=== PATIENT | female | born 1970 | race Caucasian/White ===

== ENCOUNTER 2018-07-10 13:03 | Inpatient (IN) ==
[2018-07-10 16:02] LABS: Basophils % 0.3 % (0.0-0.8); Eosinophils # 0.1 10*3/uL (0.0-0.87); Eosinophils % 0.7 % (0.00-10.9); Hematocrit 42.9 VOL% (35.7-47.0); Hemoglobin 14.9 GM/DL (12.0-16.0); Immature Granulocytes % 0.4 %; Immature Granulocytes Absolute 0.04 #; Lymphocytes % 35.3 % (21.3-54.2); Mean Corpuscular HGB Conc 34.7 GM/DL (32-36); Mean Corpuscular Hemoglobin 34 PG (27-34); Mean Corpuscular Volume 96.4 FL (87-102); Monocytes # 0.7 10*3/uL (0.11-0.8); Monocytes % 5.9 % (1.7-12.7); Neutrophils # 6.6 10*3/uL (1.4-7.4); Neutrophils % 57.4 % (38.7-73.9); Platelet Count 322 T/CUMM (130-400); Red Blood Count 4.45 MC/CUMM (3.8-5.5); Red Cell Distribution Width 12.6 % (9.3-17.3); White Blood Count 11.4 T/CUMM (4-12)
[2018-07-10] MEDS ORDERED: ALBUTEROL 2.5 MG/3 ML NEB RESP TX STA (16:12)
[2018-07-10 16:25] LABS: Bilirubin,Total 0.4 MG/DL (0.2-1.0); Osmolality,Calculated 275.4 MOS/KG (273-304); Potassium 3.9 MMOL/L (3.5-5.1); Total Protein 7.4 G/DL (6.4-8.3)
[2018-07-10 16:57] LABS: ABG Base Excess 0.4 MMOL/L (-2.5-2.5); ABG HCO3 24.8 MMOL/L (20-26); ABG Oxygen Saturation 98.7 % (95-100); ABG PCO2 33.8 MM HG (35-48); ABG PH 7.452 (7.35-7.45)
[2018-07-10 17:46] LABS: INR 0.9; PT Patient Result 9.7 SECS
[2018-07-10] MEDS ORDERED: PROMETHAZINE 25 MG/1 ML VIAL IM PRN (18:00)
[2018-07-10] MEDS ORDERED: ACETAMINOPHEN 325 MG TABLET PO PRN (18:00)
[2018-07-10] MEDS ORDERED: ALBUTEROL 2.5 MG/3 ML NEB RESP TX PRN (18:03)
[2018-07-10] MEDS ORDERED: AMYLASE PO SCH (18:15)
[2018-07-10] MEDS ORDERED: LIPASE PO SCH (18:15)
[2018-07-10] MEDS ORDERED: PROTEASE PO SCH (18:15)
[2018-07-10] MEDS ORDERED: cefTRIAXone 1,000 MG in SODIUM CHLORIDE 0.9% 100 ML IV SCH (19:36)
[2018-07-10] MEDS ORDERED: AZITHROMYCIN INJ 500 MG in SODIUM CHLORIDE 0.9% 250 ML IV SCH (19:36)
[2018-07-10] MEDS: ALBUTEROL/IPRATROPIUM 3 ML NEB RESP TX SCH (19:57)
[2018-07-10] MEDS: SODIUM CHLORIDE 0.9% 1,000 ML IV SCH (20:20)
[2018-07-10] MEDS: LEVOFLOXACIN INJ 750 MG in PREMIX 1 EACH IV SCH (20:21)
[2018-07-10] MEDS: MIRTAZAPINE 30 MG TABLET PO SCH (20:21)
[2018-07-10] MEDS: guaiFENesin/DM ER 600-30 MG TABLET PO SCH (20:21)
[2018-07-10] MEDS: tiZANidine 4 MG TABLET PO PRN (20:21)
[2018-07-10] MEDS: PANTOPRAZOLE 40 MG VIAL IV SCH (20:23)
[2018-07-10] MEDS: traZODone 50 MG TABLET PO SCH (20:23)
[2018-07-10] MEDS: ONDANSETRON 4 MG/2 ML VIAL IV PRN (20:25)
[2018-07-10] MEDS ORDERED: ENOXAPARIN 30 MG/0.3 ML SYRINGE SUBCUT SCH (21:00)
[2018-07-10] MEDS ORDERED: METOCLOPRAMIDE 5 MG TABLET PO SCH (21:00)
[2018-07-10] MEDS: BECLOMETHASONE 80 MCG/PUFF INHALER 8.7 GM INH SCH (22:06)
[2018-07-11] MEDS: METOCLOPRAMIDE 10 MG/2 ML VIAL IV SCH ×4 (00:20→19:28)
[2018-07-11 00:47] LABS: Apearance,Urine CLEAR (Clear); Bacteria,Urine Occasional /HPF (Few); Bilirubin,Urine Negative (Negative); Blood, Urine Negative (Negative); Glucose,Urine (UA) Negative (Negative); Ketones,Urine Negative (Negative); Mucus,Urine Occasional /LPF (Occasional); Nitrite,Urine Negative (Negative); Protein,Urine Negative; RBC,Urine 1 /HPF (0-4); Squamous Epithelial Cell,Urine Occasional /HPF (0-10); Urine Color Straw (Yellow); Urine Specific Gravity 1.012 (1.001-1.035); Urine Urobilinogen < 2.0 EU/DL (0.2-1.0); WBC,Urine <1 /HPF (0-6)
[2018-07-11] MEDS: ALBUTEROL/IPRATROPIUM 3 ML NEB RESP TX SCH ×4 (00:52→19:01)
[2018-07-11 03:06] LABS: Barbiturates Screen,Urine Negative (Negative); Benzodiazepines Screen,Urine Negative (Negative); Cannabinoid Screen,Urine Positive (Negative); Opiate Screen,Urine Positive (Negative); Phencyclidine Screen,Urine Negative (Negative)
[2018-07-11 04:54] LABS: Basophils % 0.3 % (0.0-0.8); Eosinophils # 0.2 10*3/uL (0.0-0.87); Eosinophils % 2.1 % (0.00-10.9); Hematocrit 38.3 VOL% (35.7-47.0); Hemoglobin 12.7 GM/DL (12.0-16.0); Immature Granulocytes % 0.3 %; Immature Granulocytes Absolute 0.02 #; Lymphocytes # 3.3 10*3/uL (1.4-4.0); Lymphocytes % 43.4 % (21.3-54.2); Mean Corpuscular HGB Conc 33.2 GM/DL (32-36); Mean Corpuscular Hemoglobin 33 PG (27-34); Mean Corpuscular Volume 98.5 FL (87-102); Monocytes # 0.7 10*3/uL (0.11-0.8); Monocytes % 8.8 % (1.7-12.7); Neutrophils # 3.5 10*3/uL (1.4-7.4); Neutrophils % 45.1 % (38.7-73.9); Platelet Count 272 T/CUMM (130-400); Red Blood Count 3.89 MC/CUMM (3.8-5.5); White Blood Count 7.7 T/CUMM (4-12)
[2018-07-11] MEDS: SODIUM CHLORIDE 0.9% 1,000 ML IV SCH (04:57)
[2018-07-11 05:15] LABS: Hypochromasia Slight
[2018-07-11 05:16] LABS: Macrocytosis Slight; Platelet Estimate Normal
[2018-07-11 05:40] LABS: Albumin 3.1 G/DL (3.4-5.0); Bilirubin,Total 0.6 MG/DL (0.2-1.0); Calcium 7.8 MG/DL (8.5-10.1); Osmolality,Calculated 277.3 MOS/KG (273-304); Thyroid Stimulating Hormone 2.56 uIU/ml (0.358-3.74); Total Protein 6.3 G/DL (6.4-8.3)
[2018-07-11] MEDS ORDERED: IPRATROPIUM 500 MCG/2.5 ML NEB RESP TX SCH (07:00)
[2018-07-11] MEDS ORDERED: NON-FORMULARY MEDICATION (Omeprazole [Omeprazole] 40 MG) PO SCH (09:00)
[2018-07-11] MEDS: PANTOPRAZOLE 40 MG VIAL IV SCH ×2 (09:57→21:02)
[2018-07-11] MEDS: predniSONE 20 MG TABLET PO SCH (09:57)
[2018-07-11] MEDS: guaiFENesin/DM ER 600-30 MG TABLET PO SCH ×2 (09:57→20:58)
[2018-07-11] MEDS: BECLOMETHASONE 80 MCG/PUFF INHALER 8.7 GM INH SCH ×2 (10:37→20:59)
[2018-07-11] MEDS: DEXTROSE 5% NACL 0.45% 1,000 ML IV SCH (15:12)
[2018-07-11] MEDS: AMYLASE PO SCH ×4 (15:42→21:00)
[2018-07-11] MEDS: PROTEASE PO SCH ×4 (15:42→21:00)
[2018-07-11] MEDS: LIPASE PO SCH ×4 (15:42→21:00)
[2018-07-11] MEDS: LEVOFLOXACIN INJ 750 MG in PREMIX 1 EACH IV SCH (20:56)
[2018-07-11] MEDS: MIRTAZAPINE 30 MG TABLET PO SCH (20:58)
[2018-07-11] MEDS: traZODone 50 MG TABLET PO SCH (20:58)
[2018-07-11] MEDS: ENOXAPARIN 40 MG/0.4 ML SYRINGE SUBCUT SCH (20:58)
[2018-07-11] MEDS: tiZANidine 4 MG TABLET PO PRN (21:10)
[2018-07-12] MEDS: METOCLOPRAMIDE 10 MG/2 ML VIAL IV SCH ×2 (00:06→05:34)
[2018-07-12] MEDS: ALBUTEROL/IPRATROPIUM 3 ML NEB RESP TX SCH ×4 (00:42→19:32)
[2018-07-12] MEDS: DEXTROSE 5% NACL 0.45% 1,000 ML IV SCH ×4 (02:27→22:27)
[2018-07-12 06:37] LABS: Calcium 8.1 MG/DL (8.5-10.1)
[2018-07-12 06:38] LABS: Osmolality,Calculated 278.3 MOS/KG (273-304); Potassium 3.6 MMOL/L (3.5-5.1)
[2018-07-12] MEDS: HYOSCYAMINE SULFATE 0.375 MG PO SCH ×2 (09:06→12:57)
[2018-07-12] MEDS: BECLOMETHASONE 80 MCG/PUFF INHALER 8.7 GM INH SCH ×2 (09:08→20:54)
[2018-07-12] MEDS: PANTOPRAZOLE 40 MG VIAL IV SCH (09:09)
[2018-07-12] MEDS: guaiFENesin/DM ER 600-30 MG TABLET PO SCH ×2 (09:15→20:56)
[2018-07-12] MEDS: predniSONE 20 MG TABLET PO SCH (09:15)
[2018-07-12] MEDS: AMYLASE PO SCH ×5 (09:16→20:55)
[2018-07-12] MEDS: LIPASE PO SCH ×5 (09:16→20:55)
[2018-07-12] MEDS: PROTEASE PO SCH ×5 (09:16→20:55)
[2018-07-12] MEDS: tiZANidine 4 MG TABLET PO PRN ×2 (10:23→22:26)
[2018-07-12] MEDS: ONDANSETRON 4 MG/2 ML VIAL IV PRN (12:45)
[2018-07-12] MEDS: SODIUM CHLORIDE 0.9% 1,000 ML IV SCH (12:56)
[2018-07-12] MEDS: LEVOFLOXACIN 750 MG TABLET PO SCH (13:31)
[2018-07-12] MEDS: ENOXAPARIN 40 MG/0.4 ML SYRINGE SUBCUT SCH (20:56)
[2018-07-12] MEDS: traZODone 50 MG TABLET PO SCH (20:56)
[2018-07-12] MEDS: MIRTAZAPINE 30 MG TABLET PO SCH (20:56)
[2018-07-13] MEDS: ALBUTEROL/IPRATROPIUM 3 ML NEB RESP TX SCH ×2 (01:05→07:30)
[2018-07-13 07:40] VITALS: BP 116/81
[2018-07-13] MEDS ORDERED: PANTOPRAZOLE 40 MG TABLET PO SCH (09:00)
[2018-07-13 09:11] LABS: Hematocrit 39.5 VOL% (35.7-47.0); Hemoglobin 13.4 GM/DL (12.0-16.0)
[2018-07-13] MEDS: predniSONE 20 MG TABLET PO SCH (10:30)
[2018-07-13] MEDS: LEVOFLOXACIN 750 MG TABLET PO SCH (10:30)
[2018-07-13] MEDS: guaiFENesin/DM ER 600-30 MG TABLET PO SCH (10:30)
== END 2018-07-13 11:19 | disposition home or self-care (01) | DRG 282 ==
LOC: N.EDINP 13:03 → N.ED 13:03 → N.3E 18:51 → SUATTDRO 07-12 13:31
PROVIDERS: ADMIT Internal Medicine; ATTEND Family Medicine

== ENCOUNTER 2019-11-05 10:50 | Observation (INO) ==
[2019-11-05] MEDS ORDERED: SODIUM CHLORIDE 0.9% 1,000 ML IV STA (11:31)
[2019-11-05] MEDS ORDERED: ALBUTEROL/IPRATROPIUM 3 ML NEB RESP TX STA (11:32)
[2019-11-05 11:46] LABS: Basophils % 0.2 % (0.0-0.8); Hemoglobin 15.5 GM/DL (12.0-16.0); Immature Granulocytes % 0.5 %; Immature Granulocytes Absolute 0.06 #; Lymphocytes # 1.1 10*3/uL (1.4-4.0); Lymphocytes % 8.6 % (21.3-54.2); Mean Corpuscular HGB Conc 34.4 GM/DL (32-36); Mean Corpuscular Volume 93.9 FL (87-102); Mean Platelet Volume 9.5 FL (9.6-12.0); Monocytes % 9.7 % (1.7-12.7); Platelet Count 225 T/CUMM (130-400); Red Blood Count 4.79 MC/CUMM (3.8-5.5); Red Cell Distribution Width 13.3 % (9.3-17.3); White Blood Count 12.5 T/CUMM (4-12)
[2019-11-05 12:09] LABS: Alanine Aminotransferase 18 U/L (13-56); Alkaline Phosphatase 89 U/L (45-117); Amylase 28 U/L (25-115); Aspartate Amino Transferase 22 U/L (0-37); Blood Urea Nitrogen 12 MG/DL (7-18); Calcium 8.9 MG/DL (8.5-10.1); Estimated Glom Filtration Rate 60 ML/MIN; Glucose 104 MG/DL (74-106); Osmolality,Calculated 267.2 MOS/KG (273-304); Total Protein 7.4 G/DL (6.4-8.3); Troponin I < 0.015 NG/ML (0.00-0.045)
[2019-11-05 12:42] LABS: PT Patient Result 10.4 SECS (9.6-12.2); Partial Thromboplastin Time 36.8 SECS (20.8-36.0)
[2019-11-05] MEDS ORDERED: methylPREDNISolone SOD SUC 125 MG/2 ML VIAL IV STA (13:09)
[2019-11-05 14:29] LABS: Apearance,Urine CLOUDY (Clear); Bacteria,Urine Occasional /HPF (Few); Bilirubin,Urine Negative (Negative); Blood, Urine Moderate mg/dL (Negative); Glucose,Urine (UA) Negative (Negative); Ketones,Urine 5 mg/dL (Negative); Mucus,Urine Few /LPF (Occasional); Nitrite,Urine Negative (Negative); Protein,Urine Negative; RBC,Urine 3 /HPF (0-4); Squamous Epithelial Cell,Urine Moderate /HPF (0-10); Urine Color Yellow (Yellow); Urine Specific Gravity 1.023 (1.001-1.035); Urine Urobilinogen < 2.0 EU/DL (0.2-1.0); WBC,Urine <1 /HPF (0-6)
[2019-11-05] MEDS ORDERED: INFLUENZA VIRUS VACCINE 0.5 ML SYRINGE IM ONE (14:55)
[2019-11-05] MEDS ORDERED: ACETAMINOPHEN 325 MG TABLET PO PRN (15:26)
[2019-11-05] MEDS: ONDANSETRON 4 MG/2 ML VIAL IV PRN (15:31)
[2019-11-05] MEDS ORDERED: HYOSCYAMINE 0.125 MG TABLET PO PRN (15:37)
[2019-11-05] MEDS: NYSTATIN 500,000 UNIT/5 ML UDCUP PO SCH ×2 (16:08→21:23)
[2019-11-05] MEDS: ENOXAPARIN 40 MG/0.4 ML SYRINGE SUBCUT SCH (16:09)
[2019-11-05] MEDS: methylPREDNISolone SOD SUC 40 MG/1 ML VIAL IV SCH (16:10)
[2019-11-05] MEDS: SODIUM CHLORIDE 0.9% 1,000 ML IV SCH (16:12)
[2019-11-05] MEDS: LIPASE PROTEASE AMYLASE PO SCH (18:25)
[2019-11-05] MEDS ORDERED: ALBUTEROL/IPRATROPIUM 3 ML NEB RESP TX SCH (19:00)
[2019-11-05] MEDS: LEVALBUTEROL 0.63 MG/3 ML NEB RESP TX SCH (19:28)
[2019-11-05] MEDS: traZODone 50 MG TABLET PO PRN (21:22)
[2019-11-05] MEDS: PREGABALIN 75 MG CAPSULE PO SCH (21:23)
[2019-11-05] MEDS: MIRTAZAPINE 30 MG TABLET PO SCH (21:23)
[2019-11-06] MEDS: LEVALBUTEROL 0.63 MG/3 ML NEB RESP TX SCH ×4 (00:21→19:03)
[2019-11-06] MEDS: methylPREDNISolone SOD SUC 40 MG/1 ML VIAL IV SCH ×2 (04:12→20:40)
[2019-11-06] MEDS: ONDANSETRON 4 MG/2 ML VIAL IV PRN ×3 (04:19→18:39)
[2019-11-06] MEDS: SODIUM CHLORIDE 0.9% 1,000 ML IV SCH (06:30)
[2019-11-06 07:08] LABS: Basophils % 0.2 % (0.0-0.8); Hematocrit 40.2 VOL% (35.7-47.0); Immature Granulocytes % 0.7 %; Immature Granulocytes Absolute 0.08 #; Lymphocytes # 1.3 10*3/uL (1.4-4.0); Lymphocytes % 10.5 % (21.3-54.2); Mean Corpuscular HGB Conc 33.6 GM/DL (32-36); Mean Corpuscular Volume 96.6 FL (87-102); Mean Platelet Volume 9.9 FL (9.6-12.0); Monocytes % 3.6 % (1.7-12.7); Platelet Count 228 T/CUMM (130-400); Red Blood Count 4.16 MC/CUMM (3.8-5.5); Red Cell Distribution Width 13.2 % (9.3-17.3); White Blood Count 12.3 T/CUMM (4-12)
[2019-11-06 07:10] LABS: Hemoglobin 13.5 GM/DL (12.0-16.0)
[2019-11-06 07:30] LABS: Calcium 8.6 MG/DL (8.5-10.1); Osmolality,Calculated 277.5 MOS/KG (273-304); Risk Ratio 8.26; Thyroid Stimulating Hormone 0.245 uIU/ml (0.358-3.74)
[2019-11-06] MEDS: LIPASE PROTEASE AMYLASE PO SCH ×3 (08:17→17:48)
[2019-11-06] MEDS: NYSTATIN 500,000 UNIT/5 ML UDCUP PO SCH ×4 (08:18→20:39)
[2019-11-06] MEDS: PANTOPRAZOLE 40 MG TABLET PO SCH (08:18)
[2019-11-06] MEDS: ENOXAPARIN 40 MG/0.4 ML SYRINGE SUBCUT SCH (08:18)
[2019-11-06] MEDS: PREGABALIN 75 MG CAPSULE PO SCH ×2 (08:19→20:36)
[2019-11-06] MEDS: NICOTINE 14 MG/24 HR PATCH TRANSDERM SCH (09:55)
[2019-11-06 10:52] LABS: Troponin I < 0.015 NG/ML (0.00-0.045)
[2019-11-06 13:46] LABS: Troponin I < 0.015 NG/ML (0.00-0.045)
[2019-11-06 17:07] LABS: Troponin I < 0.015 NG/ML (0.00-0.045)
[2019-11-06] MEDS: MIRTAZAPINE 30 MG TABLET PO SCH (20:47)
[2019-11-06] MEDS: traZODone 50 MG TABLET PO PRN (20:56)
[2019-11-07] MEDS: LEVALBUTEROL 0.63 MG/3 ML NEB RESP TX SCH ×4 (01:19→19:16)
[2019-11-07] MEDS: ONDANSETRON 4 MG/2 ML VIAL IV PRN ×4 (01:50→21:28)
[2019-11-07 06:36] LABS: Basophils % 0.1 % (0.0-0.8); Hematocrit 38.4 VOL% (35.7-47.0); Hemoglobin 12.7 GM/DL (12.0-16.0); Immature Granulocytes Absolute 0.19 #; Lymphocytes # 1.3 10*3/uL (1.4-4.0); Lymphocytes % 6.8 % (21.3-54.2); Mean Corpuscular HGB Conc 33.1 GM/DL (32-36); Mean Corpuscular Volume 98.5 FL (87-102); Mean Platelet Volume 9.8 FL (9.6-12.0); Monocytes % 6.4 % (1.7-12.7); Neutrophils % 85.7 % (38.7-73.9); Platelet Count 230 T/CUMM (130-400); Red Cell Distribution Width 13.6 % (9.3-17.3); White Blood Count 19.4 T/CUMM (4-12)
[2019-11-07 06:46] LABS: Calcium 8.7 MG/DL (8.5-10.1); Osmolality,Calculated 276.5 MOS/KG (273-304)
[2019-11-07] MEDS: LIPASE PROTEASE AMYLASE PO SCH ×3 (08:23→17:24)
[2019-11-07] MEDS: NYSTATIN 500,000 UNIT/5 ML UDCUP PO SCH ×4 (08:24→21:29)
[2019-11-07] MEDS: methylPREDNISolone SOD SUC 40 MG/1 ML VIAL IV SCH ×2 (08:24→21:28)
[2019-11-07] MEDS: PREGABALIN 75 MG CAPSULE PO SCH ×2 (08:24→21:29)
[2019-11-07] MEDS: PANTOPRAZOLE 40 MG TABLET PO SCH (08:24)
[2019-11-07] MEDS: ENOXAPARIN 40 MG/0.4 ML SYRINGE SUBCUT SCH (08:25)
[2019-11-07] MEDS: NICOTINE 14 MG/24 HR PATCH TRANSDERM SCH (08:28)
[2019-11-07] MEDS: POLYETHYLENE GLYCOL POWDER 17 GM PACK PO SCH (13:24)
[2019-11-07] MEDS: DOCUSATE SODIUM 100 MG CAPSULE PO SCH (21:29)
[2019-11-07] MEDS: MIRTAZAPINE 30 MG TABLET PO SCH (21:29)
[2019-11-07] MEDS: traZODone 50 MG TABLET PO PRN (22:41)
[2019-11-08] MEDS: LEVALBUTEROL 0.63 MG/3 ML NEB RESP TX SCH ×4 (00:57→19:30)
[2019-11-08 06:47] LABS: Basophils % 0.1 % (0.0-0.8); Hematocrit 37.5 VOL% (35.7-47.0); Hemoglobin 12.1 GM/DL (12.0-16.0); Immature Granulocytes % 1.2 %; Immature Granulocytes Absolute 0.15 #; Lymphocytes # 1.8 10*3/uL (1.4-4.0); Lymphocytes % 13.4 % (21.3-54.2); Mean Corpuscular HGB Conc 32.3 GM/DL (32-36); Mean Corpuscular Volume 98.7 FL (87-102); Mean Platelet Volume 10.2 FL (9.6-12.0); Monocytes % 5.8 % (1.7-12.7); Neutrophils % 79.5 % (38.7-73.9); Platelet Count 218 T/CUMM (130-400); Red Cell Distribution Width 13.8 % (9.3-17.3)
[2019-11-08 07:02] LABS: Calcium 8.6 MG/DL (8.5-10.1); Osmolality,Calculated 278.4 MOS/KG (273-304)
[2019-11-08] MEDS: ONDANSETRON 4 MG/2 ML VIAL IV PRN ×3 (07:21→20:30)
[2019-11-08] MEDS: PANTOPRAZOLE 40 MG TABLET PO SCH (08:58)
[2019-11-08] MEDS: PREGABALIN 75 MG CAPSULE PO SCH ×2 (08:58→20:30)
[2019-11-08] MEDS: NICOTINE 14 MG/24 HR PATCH TRANSDERM SCH (08:58)
[2019-11-08] MEDS: NYSTATIN 500,000 UNIT/5 ML UDCUP PO SCH ×4 (08:58→20:29)
[2019-11-08] MEDS: DOCUSATE SODIUM 100 MG CAPSULE PO SCH ×2 (08:58→20:29)
[2019-11-08] MEDS: POLYETHYLENE GLYCOL POWDER 17 GM PACK PO SCH (08:58)
[2019-11-08] MEDS: methylPREDNISolone SOD SUC 40 MG/1 ML VIAL IV SCH ×2 (09:05→20:31)
[2019-11-08] MEDS: ENOXAPARIN 40 MG/0.4 ML SYRINGE SUBCUT SCH (09:06)
[2019-11-08] MEDS: LIPASE PROTEASE AMYLASE PO SCH ×3 (09:07→16:32)
[2019-11-08] MEDS ORDERED: MAGNESIUM CITRATE 300 ML BOTTLE PO ONE (10:30)
[2019-11-08] MEDS ORDERED: CYCLOBENZAPRINE 10 MG TABLET PO PRN (12:04)
[2019-11-08] MEDS: CYCLOBENZAPRINE 10 MG TABLET PO SCH (20:29)
[2019-11-08] MEDS: MIRTAZAPINE 30 MG TABLET PO SCH (20:30)
[2019-11-08] MEDS: traZODone 50 MG TABLET PO PRN (20:30)
[2019-11-09] MEDS: LEVALBUTEROL 0.63 MG/3 ML NEB RESP TX SCH ×4 (01:04→19:44)
[2019-11-09] MEDS: ONDANSETRON 4 MG/2 ML VIAL IV PRN ×4 (02:59→21:50)
[2019-11-09] MEDS: PREGABALIN 75 MG CAPSULE PO SCH ×2 (08:22→21:34)
[2019-11-09] MEDS: DOCUSATE SODIUM 100 MG CAPSULE PO SCH ×2 (08:22→21:35)
[2019-11-09] MEDS: NYSTATIN 500,000 UNIT/5 ML UDCUP PO SCH ×4 (08:23→21:35)
[2019-11-09] MEDS: CYCLOBENZAPRINE 10 MG TABLET PO SCH ×3 (08:23→21:34)
[2019-11-09] MEDS: POLYETHYLENE GLYCOL POWDER 17 GM PACK PO SCH (08:26)
[2019-11-09] MEDS: NICOTINE 14 MG/24 HR PATCH TRANSDERM SCH (08:28)
[2019-11-09] MEDS: LIPASE PROTEASE AMYLASE PO SCH ×3 (08:30→16:32)
[2019-11-09] MEDS: ENOXAPARIN 40 MG/0.4 ML SYRINGE SUBCUT SCH (10:26)
[2019-11-09] MEDS: methylPREDNISolone SOD SUC 40 MG/1 ML VIAL IV SCH ×2 (10:26→21:36)
[2019-11-09] MEDS: PANTOPRAZOLE 40 MG TABLET PO SCH (10:26)
[2019-11-09] MEDS: traZODone 50 MG TABLET PO PRN (21:35)
[2019-11-09] MEDS: MIRTAZAPINE 30 MG TABLET PO SCH (21:49)
[2019-11-10] MEDS: LEVALBUTEROL 0.63 MG/3 ML NEB RESP TX SCH ×2 (01:13→07:04)
[2019-11-10 07:43] VITALS: BP 136/91
[2019-11-10] MEDS: ONDANSETRON 4 MG/2 ML VIAL IV PRN (10:00)
[2019-11-10] MEDS: ENOXAPARIN 40 MG/0.4 ML SYRINGE SUBCUT SCH (10:01)
[2019-11-10] MEDS: NICOTINE 14 MG/24 HR PATCH TRANSDERM SCH (10:01)
[2019-11-10] MEDS: POLYETHYLENE GLYCOL POWDER 17 GM PACK PO SCH (10:01)
[2019-11-10] MEDS: PANTOPRAZOLE 40 MG TABLET PO SCH (10:02)
[2019-11-10] MEDS: PREGABALIN 75 MG CAPSULE PO SCH (10:02)
[2019-11-10] MEDS: NYSTATIN 500,000 UNIT/5 ML UDCUP PO SCH (10:02)
[2019-11-10] MEDS: DOCUSATE SODIUM 100 MG CAPSULE PO SCH (10:03)
[2019-11-10] MEDS: methylPREDNISolone SOD SUC 40 MG/1 ML VIAL IV SCH (10:03)
[2019-11-10] MEDS: CYCLOBENZAPRINE 10 MG TABLET PO SCH (10:03)
[2019-11-10] MEDS: LIPASE PROTEASE AMYLASE PO SCH (10:04)
== END 2019-11-10 11:43 | disposition home or self-care (01) | DRG 140 ==
LOC: N.ED 10:50 → N.EDINP 13:42 → INTOOBSV 13:42 → N.2E 14:46
PROVIDERS: ADMIT Internal Medicine; ATTEND Internal Medicine

== ENCOUNTER 2021-03-14 19:53 | Observation (INO) ==
[2021-03-14 20:36] LABS: Basophils % 0.3 % (0.0-0.8); Eosinophils # 0.2 10*3/uL (0.0-0.87); Eosinophils % 1.4 % (0.00-10.9); Hematocrit 36.6 VOL% (35.7-47.0); Hemoglobin 11.9 GM/DL (12.0-16.0); Immature Granulocytes % 0.6 %; Immature Granulocytes Absolute 0.08 #; Lymphocytes # 4.5 10*3/uL (1.4-4.0); Lymphocytes % 35.6 % (21.3-54.2); Mean Corpuscular HGB Conc 32.5 GM/DL (32-36); Mean Corpuscular Volume 95.8 FL (87-102); Mean Platelet Volume 9.4 FL (9.6-12.0); Monocytes % 5.2 % (1.7-12.7); Neutrophils % 56.9 % (38.7-73.9); Platelet Count 360 T/CUMM (130-400); Red Blood Count 3.82 MC/CUMM (3.8-5.5); Red Cell Distribution Width 13.8 % (9.3-17.3); White Blood Count 12.8 T/CUMM (4-12)
[2021-03-14 20:46] LABS: INR 0.9; PT Patient Result 10.4 SECS (10.5-12.0); Partial Thromboplastin Time 31.6 SECS (23.9-33.8)
[2021-03-14 20:59] LABS: Alanine Aminotransferase 25 U/L (13-56); Albumin 3.9 G/DL (3.4-5.0); Alkaline Phosphatase 111 U/L (45-117); Aspartate Amino Transferase 19 U/L (0-37); Bilirubin,Total < 0.39 MG/DL (0.2-1.0); Blood Urea Nitrogen 5 MG/DL (7-18); Calcium 9.1 MG/DL (8.5-10.1); Carbon Dioxide 29 MMOL/L (21-32); Glucose 95 MG/DL (74-106); Osmolality,Calculated 275.4 MOS/KG (273-304); Potassium 3.5 MMOL/L (3.5-5.1); Sodium 140 MMOL/L (136-145); Total Protein 7.3 G/DL (6.4-8.2)
[2021-03-14 21:01] LABS: Estimated Glom Filtration Rate 0 ML/MIN
[2021-03-14 21:55] LABS: Bilirubin,Urine Negative (Negative); Blood, Urine Negative (Negative); Glucose,Urine (UA) Negative (Negative); Ketones,Urine Negative (Negative); Mucus,Urine Occasional /LPF (Occasional); Nitrite,Urine Negative (Negative); Protein,Urine Negative; RBC,Urine 1 /HPF (0-4); Squamous Epithelial Cell,Urine Occasional /HPF (0-10); Urine Appearance CLEAR (Clear); Urine Color Straw (Yellow); Urine Specific Gravity 1.005 (1.001-1.035); Urine Urobilinogen < 2.0 EU/DL (0.2-1.0)
[2021-03-14] MEDS ORDERED: CLOPIDOGREL 75 MG TABLET PO STA (21:57)
[2021-03-14 23:21] LABS: Barbiturates Screen,Urine Negative (Negative); Benzodiazepines Screen,Urine Negative (Negative); Cannabinoid Screen,Urine Positive (Negative); Opiate Screen,Urine Negative (Negative); Phencyclidine Screen,Urine Negative (Negative)
[2021-03-14] MEDS ORDERED: GLUCAGON 1 MG VIAL IM PRN (23:34)
[2021-03-14] MEDS ORDERED: DEXTROSE 50% 25 GM/50 ML VIAL IV PRN (23:34)
[2021-03-14] MEDS ORDERED: hydrALAZINE 20 MG/1 ML VIAL IV PRN (23:34)
[2021-03-14] MEDS ORDERED: DOCUSATE SODIUM 100 MG CAPSULE PO PRN (23:34)
[2021-03-15] MEDS: ENOXAPARIN 40 MG/0.4 ML SYRINGE SUBCUT SCH ×2 (00:13→23:41)
[2021-03-15] MEDS: ATORVASTATIN 20 MG TABLET PO SCH ×2 (00:13→20:34)
[2021-03-15 04:29] LABS: Basophils % 0.4 % (0.0-0.8); Eosinophils # 0.2 10*3/uL (0.0-0.87); Hematocrit 34.1 VOL% (35.7-47.0); Hemoglobin 11.2 GM/DL (12.0-16.0); Immature Granulocytes % 0.6 %; Immature Granulocytes Absolute 0.06 #; Lymphocytes # 4.5 10*3/uL (1.4-4.0); Lymphocytes % 41.8 % (21.3-54.2); Mean Corpuscular HGB Conc 32.8 GM/DL (32-36); Mean Corpuscular Volume 94.7 FL (87-102); Mean Platelet Volume 9.7 FL (9.6-12.0); Monocytes % 6.1 % (1.7-12.7); Neutrophils % 49.1 % (38.7-73.9); Platelet Count 302 T/CUMM (130-400); Red Cell Distribution Width 13.6 % (9.3-17.3); White Blood Count 10.7 T/CUMM (4-12)
[2021-03-15 04:51] LABS: Hypochromasia 1+; Microcytosis 1+; Platelet Estimate Adequate
[2021-03-15 05:01] LABS: Risk Ratio 10.61; VLDL Cholesterol 53.2 MG/DL
[2021-03-15 05:13] LABS: Calcium 8.8 MG/DL (8.5-10.1); Osmolality,Calculated 268.8 MOS/KG (273-304); Potassium 3.8 MMOL/L (3.5-5.1); Thyroid Stimulating Hormone 1.89 uIU/ml (0.358-3.74)
[2021-03-15] MEDS ORDERED: NYSTATIN 500,000 UNIT/5 ML UDCUP PO PRN (07:46)
[2021-03-15] MEDS ORDERED: METOCLOPRAMIDE 10 MG/10 ML UDCUP PO PRN (07:46)
[2021-03-15] MEDS ORDERED: LACTULOSE 20 GM/30 ML UDCUP PO ONE (07:53)
[2021-03-15] MEDS ORDERED: LIPASE PROTEASE AMYLASE PO SCH (08:00)
[2021-03-15] MEDS: LIPASE PROTEASE AMYLASE PO SCH ×4 (10:58→20:32)
[2021-03-15] MEDS: Fluticasone-Umeclidin-Vilanter [Trelegy Ellipta] 100-62.5-25 mcg INH SCH (10:59)
[2021-03-15] MEDS: MONTELUKAST 10 MG TABLET PO SCH (11:19)
[2021-03-15] MEDS: DICYCLOMINE 20 MG TABLET PO SCH ×4 (11:19→20:34)
[2021-03-15] MEDS: tiZANidine 4 MG TABLET PO SCH ×2 (11:19→20:34)
[2021-03-15] MEDS: CLOPIDOGREL 75 MG TABLET PO SCH (11:19)
[2021-03-15] MEDS: ACETAMINOPHEN 325 MG TABLET PO PRN (11:20)
[2021-03-15] MEDS: PANTOPRAZOLE 40 MG TABLET PO SCH ×2 (11:20→20:34)
[2021-03-15] MEDS: PREGABALIN 75 MG CAPSULE PO SCH ×2 (11:21→20:33)
[2021-03-15] MEDS: MIRTAZAPINE 15 MG TABLET PO SCH (20:33)
[2021-03-15] MEDS: ONDANSETRON 4 MG/2 ML VIAL IV PRN (23:39)
[2021-03-16 05:42] LABS: Calcium 8.7 MG/DL (8.5-10.1); Osmolality,Calculated 280.1 MOS/KG (273-304); Potassium 3.6 MMOL/L (3.5-5.1)
[2021-03-16] MEDS: MONTELUKAST 10 MG TABLET PO SCH (08:03)
[2021-03-16] MEDS: PREGABALIN 75 MG CAPSULE PO SCH ×2 (08:03→20:18)
[2021-03-16] MEDS: CLOPIDOGREL 75 MG TABLET PO SCH (08:03)
[2021-03-16] MEDS: DICYCLOMINE 20 MG TABLET PO SCH ×4 (08:03→20:19)
[2021-03-16] MEDS: tiZANidine 4 MG TABLET PO SCH ×2 (08:03→20:18)
[2021-03-16] MEDS: PANTOPRAZOLE 40 MG TABLET PO SCH ×2 (08:03→20:19)
[2021-03-16 08:04] LABS: Hematocrit 34.5 VOL% (35.7-47.0); Hemoglobin 11.4 GM/DL (12.0-16.0)
[2021-03-16] MEDS: Fluticasone-Umeclidin-Vilanter [Trelegy Ellipta] 100-62.5-25 mcg INH SCH (08:04)
[2021-03-16] MEDS: LIPASE PROTEASE AMYLASE PO SCH ×3 (08:04→18:37)
[2021-03-16] MEDS: ONDANSETRON 4 MG/2 ML VIAL IV PRN ×2 (12:29→18:35)
[2021-03-16 13:30] LABS: Hematocrit 34.8 VOL% (35.7-47.0); Hemoglobin 11.4 GM/DL (12.0-16.0)
[2021-03-16] MEDS: ACETAMINOPHEN 325 MG TABLET PO PRN (18:36)
[2021-03-16 19:40] LABS: Hematocrit 33.8 VOL% (35.7-47.0); Hemoglobin 11.1 GM/DL (12.0-16.0)
[2021-03-16] MEDS: MIRTAZAPINE 15 MG TABLET PO SCH (20:19)
[2021-03-16] MEDS: ATORVASTATIN 20 MG TABLET PO SCH (20:19)
[2021-03-16] MEDS: traZODone 50 MG TABLET PO PRN (20:25)
[2021-03-17 04:21] LABS: Basophils % 0.3 % (0.0-0.8); Eosinophils # 0.2 10*3/uL (0.0-0.87); Eosinophils % 1.9 % (0.00-10.9); Hematocrit 32.9 VOL% (35.7-47.0); Hemoglobin 10.7 GM/DL (12.0-16.0); Immature Granulocytes % 0.9 %; Immature Granulocytes Absolute 0.09 #; Lymphocytes # 3.7 10*3/uL (1.4-4.0); Lymphocytes % 36.5 % (21.3-54.2); Mean Corpuscular HGB Conc 32.5 GM/DL (32-36); Mean Corpuscular Volume 95.4 FL (87-102); Mean Platelet Volume 9.4 FL (9.6-12.0); Monocytes % 7.1 % (1.7-12.7); Neutrophils % 53.3 % (38.7-73.9); Platelet Count 304 T/CUMM (130-400); Red Blood Count 3.45 MC/CUMM (3.8-5.5); Red Cell Distribution Width 13.6 % (9.3-17.3); White Blood Count 10.3 T/CUMM (4-12)
[2021-03-17 04:37] LABS: Calcium 8.6 MG/DL (8.5-10.1); Osmolality,Calculated 277.4 MOS/KG (273-304); Potassium 3.3 MMOL/L (3.5-5.1)
[2021-03-17 04:41] LABS: Hypochromasia Slight; Microcytosis Slight; Platelet Estimate Adequate
[2021-03-17] MEDS: ACETAMINOPHEN 325 MG TABLET PO PRN (06:05)
[2021-03-17] MEDS: LIPASE PROTEASE AMYLASE PO SCH ×3 (09:43→16:10)
[2021-03-17] MEDS: PREGABALIN 75 MG CAPSULE PO SCH ×2 (09:44→20:28)
[2021-03-17] MEDS: DICYCLOMINE 20 MG TABLET PO SCH ×4 (09:44→20:28)
[2021-03-17] MEDS: POTASSIUM CHLORIDE 20 MEQ TABLET PO PRN ×3 (09:45→14:39)
[2021-03-17] MEDS: MONTELUKAST 10 MG TABLET PO SCH (09:45)
[2021-03-17] MEDS: CLOPIDOGREL 75 MG TABLET PO SCH (09:45)
[2021-03-17] MEDS: PANTOPRAZOLE 40 MG TABLET PO SCH ×2 (09:46→20:29)
[2021-03-17] MEDS: tiZANidine 4 MG TABLET PO SCH ×2 (09:46→20:29)
[2021-03-17] MEDS: Fluticasone-Umeclidin-Vilanter [Trelegy Ellipta] 100-62.5-25 mcg INH SCH (09:56)
[2021-03-17] MEDS: ATORVASTATIN 20 MG TABLET PO SCH (20:29)
[2021-03-17] MEDS: MIRTAZAPINE 15 MG TABLET PO SCH (20:29)
[2021-03-17] MEDS: traZODone 50 MG TABLET PO PRN (20:29)
[2021-03-18 05:45] LABS: Hematocrit 33.3 VOL% (35.7-47.0); Hemoglobin 11.1 GM/DL (12.0-16.0)
[2021-03-18 06:15] LABS: Calcium 8.8 MG/DL (8.5-10.1); Osmolality,Calculated 273.7 MOS/KG (273-304); Potassium 4.1 MMOL/L (3.5-5.1)
[2021-03-18 06:58] VITALS: BP 140/88
[2021-03-18] MEDS: LIPASE PROTEASE AMYLASE PO SCH (07:48)
[2021-03-18] MEDS: PREGABALIN 75 MG CAPSULE PO SCH (08:23)
[2021-03-18] MEDS: CLOPIDOGREL 75 MG TABLET PO SCH (08:23)
[2021-03-18] MEDS: tiZANidine 4 MG TABLET PO SCH (08:23)
[2021-03-18] MEDS: MONTELUKAST 10 MG TABLET PO SCH (08:23)
[2021-03-18] MEDS: PANTOPRAZOLE 40 MG TABLET PO SCH (08:24)
[2021-03-18] MEDS: DICYCLOMINE 20 MG TABLET PO SCH (08:24)
[2021-03-18] MEDS: Fluticasone-Umeclidin-Vilanter [Trelegy Ellipta] 100-62.5-25 mcg INH SCH (08:28)
== END 2021-03-18 10:40 | disposition home health service (06) ==
LOC: N.ED 19:53 → N.EDINP 19:53 → N.3E 03-15 00:11
PROVIDERS: ADMIT Hospitalist; ATTEND Hospitalist